=== PATIENT | female | born 1995 | race Hispanic/Latino ===

== ENCOUNTER 2017-09-12 17:40 | Emergency (ER) | payer OTHER ==
[2017-09-12 18:26] LABS: KETONE, URINE AUTO RFX NEGATIVE (NEGATIVE); LEUKOCYTE ESTERASE UR AUTO RFX 2+ (NEGATIVE); NITRITE, URINE AUTO RFX POSITIVE (NEGATIVE); RBC, URINE AUTO RFX 117 /HPF (0-3); SPECIFIC GRAVITY UR AUTO RFX 1.017 (1.002-1.035); SQUAM EPITHELIAL CELL UR AURFX 3 /HPF (0-6); WBC, URINE AUTO RFX TNTC /HPF (0-3)
[2017-09-12 19:29] LABS: CONTROL LINE UCG INT CTR LINE PRESENT; URINE PREG TEST NEGATIVE (NEGATIVE)
== END 2017-09-12 19:49 | disposition home or self-care (01) ==
LOC: M ED 17:40
DX: N39.0 Urinary tract infection, site not specified (principal); Z87.440 Personal history of urinary (tract) infections; Z79.899 Other long term (current) drug therapy
CPT/HCPCS: 84703

== ENCOUNTER 2017-12-25 14:22 | Emergency (ER) | payer OTHER ==
[2017-12-25 15:01] LABS: CONTROL LINE UCG INT CTR LINE PRESENT; URINE PREG TEST NEGATIVE (NEGATIVE)
[2017-12-25 15:04] LABS: KETONE, URINE AUTO RFX NEGATIVE (NEGATIVE); MUCUS, URINE RFX SMALL (NEGATIVE); NITRITE, URINE AUTO RFX NEGATIVE (NEGATIVE); RBC, URINE AUTO RFX 0 /HPF (0-3); SQUAM EPITHELIAL CELL UR AURFX 5 /HPF (0-6); WBC, URINE AUTO RFX 3 /HPF (0-3)
[2017-12-25 15:05] LABS: LEUKOCYTE ESTERASE UR AUTO RFX TRACE (NEGATIVE)
[2017-12-25] MEDS: cefTRIAXone SOD 250 MG VIAL (J0696) IM (18:16)
[2017-12-25] MEDS: AZITHROMYCIN 250 MG TAB PO (18:16)
[2017-12-25] MEDS: metroNIDAZOLE (FLAGYL) 500 MG TAB PO (18:17)
[2017-12-25 20:30] LABS: CHLAMYDIA DNA AMPLIFICATION NEGATIVE (NEGATIVE); GC DNA AMPLIFICATION NEGATIVE (NEGATIVE)
== END 2017-12-25 18:52 | disposition home or self-care (01) ==
LOC: M ED 14:22
DX: N89.8 Other specified noninflammatory disorders of vagina (principal); N73.9 Female pelvic inflammatory disease, unspecified
CPT/HCPCS: J0696